=== PATIENT | male | born 1985 | race Hispanic/Latino ===

== ENCOUNTER 2024-09-05 13:10 | Inpatient (IN) | payer OTHER, SELFPAY ==
[2024-09-05] VITALS (9 sets, daily range): BP systolic 137–163; BP diastolic 77–105; PULSE 91–103; RESP 13–20; TEMP 36.5–37; O2SAT 97–99; BMI 21.8
--- NOTE | ~2024-09-05 | CT_ITS ---
CT scan of the Neck Technique: 2.5 mm axial scans were obtained through the neck after intravenous administration of 75 c c Omnipaque 350. Coronal and sagittal reconstructions of the neck were obtained. Dose reduction techn ique was used on this scan by utilizing automated exposure control and iterative reconstruction techn ique. The dose-length product (DLP) was 555.54 mGy-cm. Clinical History: Dysphagia Findings: There are mildly enlarged lymph nodes at the right neck at level 2 and in the submental region/subman dibular region, nonspecific, most likely reactive/inflammatory. Parapharyngeal spaces appear normal b ilaterally. No abscess evident. The parotid and submandibular glands appear normal. The pharyngeal mucosal spaces appear normal. No soft tissue masses are seen in the neck. The thyroid gland appears normal. Images of the lung apices reveal no abnormalities. Impression: Mild probable reactive/inflammatory lymphadenopathy in the right neck, as above. Reviewed, dictated and finalized at [facility]. ENGINEER Impression: Mild probable reactive/inflammatory lymphadenopathy in the right neck, as above .
--- NOTE | ~2024-09-05 | CT_ITS ---
EXAMINATION: CT facial bones w con DATE: 09/05/2024 14:54 INDICATION: Right facial abscess. TECHNIQUE: Computed tomography (CT) of the facial bones and maxillofacial region was performed with 7 5 mL Omnipaque 350 intravenous contrast. Automated exposure control and iterative reconstruction tech Needleque were employed. The dose-length product was 355.74 mGy-cm. COMPARISON: None. FINDINGS: There are likely changes of left ocular lens replacement surgery. There is right lower face soft tissue swelling. There is a 3 mm subcutaneous radiopaque foreign body in the right lower face. There is mild mucosal thickening in the paranasal sinuses. The mastoid air cells are normal. There ar e carious lesions involving teeth 3, 4, 5, 6, 12, and 13. 14 and 15 are broken and demonstrates peria pical lucencies. There is a carious lesion of 17. 18 is broken with periapical lucencies. There are c arious lesions of 28 and 29. There is a carious lesion of 30 with periapical lucencies. There is a ca rious lesion of 32. IMPRESSION: 1. Extensive dental disease. 2. Right lower face soft tissue swelling. 3. 3 mm subcutaneous radiopaque foreign body in right lower face. Reviewed, dictated and finalized at location A. 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
[2024-09-05 13:20] LABS: Glucose Point of Care > 500 mg/dl (65-105)
--- NOTE | 2024-09-05 13:23 | ECG_ITS ---
Test Date: 2024-09-05 13:24:58 Measurements Intervals [place] Rate: 103 P: 42 NC: 142 QRS: 50 QRSD: 80 T: 18 QT: 319 QTc: 419 Interpretive Statements SINUS TACHYCARDIA NONSPECIFIC ST AND T-WAVE ABNORMALITY ABNORMA ECG No previous ECG available for comparison Electronically Signed On 09-05-2024 15:04:47 TRANSIT COACH OPERATOR by Terry Valenzuela M.D.
--- NOTE | 2024-09-05 13:33 | ED.GENADULT ---
HPI - General Adult General Chief complaint: Recheck/Abnormal Lab/Rx Stated complaint: dental abscess, vomiting, dizzy, leg numbness Time Seen by Provider: 09/05/24 13:22 History of Present Illness HPI narrative: 39-year-old male history of type 1 diabetes that reports he has been out of his diabetes medications for the last month present to the emergency department for evaluation for facial swelling and concern for facial abscess. Related Data Home Medications ?Medication ?Instructions ?Recorded ?Confirmed ?Last Taken ?Type pantoprazole 40 mg tablet,delayed 40 mg PO QAM 08/04/21 09/05/24 Unknown History release Allergies Allergy/AdvReac Type Severity Reaction Status Date / Time No Known Allergies Allergy Verified 11/12/21 13:27 Review of Systems Review of Systems: All systems reviewed & are unremarkable except as noted in HPI and below PMFSH Past Medical History Medical History Anxiety Diabetes type 1 GERD (gastroesophageal reflux disease) Hyperlipidemia Neuropathy Surgical History Surgical History History of tonsillectomy Family History Family History Grandparent Diabetes mellitus Sibling Cerebral palsy Father Renal disease Social History Social History Smoking packs per day: 0.5 Smoking cigarettes per day: 10.0 Years smoked: 15 Smoking pack-years: 7.50 Smoking status: Former smoker Tobacco type: cigarettes Alcohol intake: former Alcohol use details: Social Substance use: current Substance use type: marijuana Other substance usage details: 2x a month Do You Feel Safe in your Home?: Yes Lack of Transportation: No Lack of Food: Never True Current Housing: I Have Housing Concerned About Future Housing: No Difficulty Paying Gas/Electric Bills: No Difficulty Paying for Meds: No Currently Unemployed: No Education: Grade School Difficulty w/ Childcare or Family Care: No Living arrangements: with family Spiritual care concerns: No Exam Narrative: APPEARANCE: Ill-appearing HEAD: normocephalic, atraumatic. EYES: PERRLA/EOMI, conjunctivae clear. NOSE: Normal no drainage EARS:TMS clear with good light reflex. THROAT: Pharynx clear, no exudate. NECK: Supple. No adenopathy, no masses. RESPIRATORY: Airway patent, respirations nonlabored. Clear to auscultation bilaterally, no rales, rhonchi, wheezing. CARDIOVASCULAR: Regular rate and rhythm without murmurs rubs or gallops. ABDOMINAL: Soft, nontender, nondistended, normal bowel sounds MUSCULOSKELETAL: Moves all extremities. Strength/ROM intact, No edema, No calf tenderness. NEURO: Alert. Cranial nerves II through XII intact. Good gait. Good coordination SKIN: Right-sided facial swelling. Course Vital Signs Vital signs: Vital Signs Temperature 97.7 F 09/05/24 13:13 Pulse Rate 103 H 09/05/24 13:13 Respiratory Rate 16 09/05/24 13:13 Blood Pressure 140/77 09/05/24 13:13 Pulse Oximetry 98 09/05/24 13:13 Oxygen Delivery Room Air 09/05/24 13:13 Temperature 96.8 F L 09/09/24 08:35 Pulse Rate 92 09/09/24 08:35 Respiratory Rate 16 09/09/24 08:35 Blood Pressure 153/87 H 09/09/24 08:35 Pulse Oximetry 98 09/09/24 08:37 Oxygen Delivery Room Air 09/09/24 08:37 Medical Decision Making MDM Narrative Medical decision making narrative: 39-year-old male presents emergency department for evaluation for facial swelling and concern for DKA. Patient is in DKA and was started on IV fluids insulin bolus and insulin infusion. Patient's CT was also ordered and showed no evidence abscess amenable to drainage. Patient was started on antibiotics, admitted to the ICU for DKA, case was also discussed with the hospitalist. Patient was updated on the results of the workup and plan for admission. Differential Diagnosis Differential Diagnosis: Facial abscess, DKA, COVID, influenz Vital Signs Vital Signs: Vital Signs Temperature 97.7 F 09/05/24 13:13 Pulse Rate 103 H 09/05/24 13:13 Respiratory Rate 16 09/05/24 13:13 Blood Pressure 140/77 09/05/24 13:13 Pulse Oximetry 98 09/05/24 13:13 Oxygen Delivery Room Air 09/05/24 13:13 Temperature 96.8 F L 09/09/24 08:35 Pulse Rate 92 09/09/24 08:35 Respiratory Rate 16 09/09/24 08:35 Blood Pressure 153/87 H 09/09/24 08:35 Pulse Oximetry 98 09/09/24 08:37 Oxygen Delivery Room Air 09/09/24 08:37 Lab Data Lab results reviewed: Yes I reviewed the patient's lab results. 09/09/24 05:32 09/09/24 05:32 Labs: Lab Results 09/05/24 09/05/24 09/05/24 Range/Units 13:17 13:45 13:46 WBC 7.4 (4.5-10.0) K/mm3 RBC 4.42 L (4.6-6.20) M/mm3 Hgb 12.9 L (14.0-18.0) g/dL Hct 35.5 L (42.0-52.0) % MCV 80.3 (80-100) fl MCH 29.2 (26-34) pg MCHC 36.3 H (32-36) g/dl RDW 12.0 (11.5-14.5) % Plt Count 207 (150-375) k/mm3 MPV 10.6 H (7.4-10.4) fl Immature Gran % (Auto) 0.4 (0-0.5) % Neut % (Auto) 77.9 H (45.5-73.1) % Lymph % (Auto) 13.1 L (18.3-44.2) % [place] % (Auto) 8.3 (2.6-8.5) % Eos % (Auto) 0.0 (0-4.4) % Baso % (Auto) 0.3 (0.2-1.2) % Lymph # (Auto) 0.97 (0.9-3.2) K/mm3 [place] # (Auto) 0.6 (0.1-0.6) K/mm3 Eos # (Auto) 0.0 (0-0.3) K/mm3 Baso # (Auto) 0.0 (0.0-0.1) K/mm3 Abs Immat Gran (auto) 0.03 (0.00-0.031) K/mm3 Absolute Neuts (auto) 5.8 (1.3-6.7) K/mm3 Absolute Nucleated RBC 0.000 (0.0-0.012) K/mm3 Nucleated RBC % 0.0 (0.0-0.2) % PT 13.7 (11.1-14.7) Seconds INR 1.0 APTT 30.2 (22.3-36.8) Seconds Sodium 126 L (137-145) mmol/L Potassium 5.3 H (3.4-5.0) mmol/L Chloride 89 L (98-107) mmol/L Carbon Dioxide 20 L (22-30) mmol/L Anion Gap 17 H (4-12) mmol/L BUN 36 H (9-20) mg/dL Creatinine 1.80 H (0.7-1.3) mg/dL Estim Creat Clear Calc 46 ml/min Estimated GFR 42 L (59 - ) Glucose 694 H* (65-110) mg/dL POC Capillary Glucose > 500 H* (65-105) mg/dl Hemoglobin A1c 13.4 H (<5.7) % Serum Osmolality 333 H (278-305) mOsm/kg Lactic Acid 1.0 (0.7-2.0) mmol/L Calcium 9.1 (8.4-10.2) mg/dL Phosphorus 4.8 H (2.5-4.5) mg/dL Magnesium 2.9 H (1.6-2.3) mg/dL Total Bilirubin 0.7 (0.2-1.3) mg/dL AST 14 L (17-59) U/L ALT 12 (6-50) U/L Alkaline Phosphatase 128 H (38-126) U/L Total Protein 7.0 (6.3-8.2) g/dL Albumin 4.1 (3.5-5.1) g/dL Urine Color (Yellow) Urine Appearance (Clear) Urine pH (5.0-9.0) Ur Specific [place] (1.001-1.035) Urine Protein (Negative) mg/dL Urine Glucose (UA) (Negative) mg/dL Urine Ketones (Negative) mg/dL Ur Blood (Man) (Negative) Urine Nitrate (Negative) Urine Bilirubin (Negative) Urine Urobilinogen (<2.0) mg/dL Add Ur Microanalysis Leukocyte Esterase Rfl (Negative) CIRO/UL Urine RBC (0-2) /hpf Urine WBC (0-3) /hpf Ur Squamous Epith Cells (Few) /hpf Urine Bacteria /hpf Urine Casts 09/05/24 09/05/2409/05/24 Range/Units 14:15 14:58 15:01 WBC (4.5-10.0) K/mm3 RBC (4.6-6.20) M/mm3 Hgb (14.0-18.0) g/dL Hct (42.0-52.0) % MCV (80-100) fl MCH (26-34) pg MCHC (32-36) g/dl RDW (11.5-14.5) % Plt Count (150-375) k/mm3 MPV (7.4-10.4) fl Immature Gran % (Auto) (0-0.5) % Neut % (Auto) (45.5-73.1) % Lymph % (Auto) (18.3-44.2) % [place] % (Auto) (2.6-8.5) % Eos % (Auto) (0-4.4) % Baso % (Auto) (0.2-1.2) % Lymph # (Auto) (0.9-3.2) K/mm3 [place] # (Auto) (0.1-0.6) K/mm3 Eos # (Auto) (0-0.3) K/mm3 Baso # (Auto) (0.0-0.1) K/mm3 Abs Immat Gran (auto) (0.00-0.031) K/mm3 Absolute Neuts (auto) (1.3-6.7) K/mm3 Absolute Nucleated RBC (0.0-0.012) K/mm3 Nucleated RBC % (0.0-0.2) % PT (11.1-14.7) Seconds INR APTT (22.3-36.8) Seconds Sodium 129 L (137-145) mmol/L Potassium 4.4 (3.4-5.0) mmol/L Chloride 94 L (98-107) mmol/L Carbon Dioxide 24 (22-30) mmol/L Anion Gap 11 (4-12) mmol/L BUN 34 H (9-20) mg/dL Creatinine 1.50 H (0.7-1.3) mg/dL Estim Creat Clear Calc 55 ml/min Estimated GFR 52 L (59 - ) Glucose 519 H* (65-110) mg/dL POC Capillary Glucose > 500 H* (65-105) mg/dl Hemoglobin A1c (<5.7) % Serum Osmolality (278-305) mOsm/kg Lactic Acid (0.7-2.0) mmol/L Calcium 8.4 (8.4-10.2) mg/dL Phosphorus (2.5-4.5) mg/dL Magnesium (1.6-2.3) mg/dL Total Bilirubin (0.2-1.3) mg/dL AST (17-59) U/L ALT (6-50) U/L Alkaline Phosphatase (38-126) U/L Total Protein (6.3-8.2) g/dL Albumin (3.5-5.1) g/dL Urine Color Yellow (Yellow) Urine Appearance Clear (Clear) Urine pH 5.0 (5.0-9.0) Ur Specific [place] 1.030 (1.001-1.035) Urine Protein 2+ H (Negative) mg/dL Urine Glucose (UA) 3+ H (Negative) mg/dL Urine Ketones 3+ H (Negative) mg/dL Ur Blood (Man) 1+ H (Negative) Urine Nitrate Negative (Negative) Urine Bilirubin Negative (Negative) Urine Urobilinogen 0.2 (<2.0) mg/dL Add Ur Microanalysis Reviewed Leukocyte Esterase Rfl Negative (Negative) CIRO/UL Urine RBC 3-5 H (0-2) /hpf Urine WBC 0-5 (0-3) /hpf Ur Squamous Epith Cells None seen (Few) /hpf Urine Bacteria None seen /hpf Urine Casts 0-2 09/05/24 Range/Units 16:06 WBC (4.5-10.0) K/mm3 RBC (4.6-6.20) M/mm3 Hgb (14.0-18.0) g/dL Hct (42.0-52.0) % MCV (80-100) fl MCH (26-34) pg MCHC (32-36) g/dl RDW (11.5-14.5) % Plt Count (150-375) k/mm3 MPV (7.4-10.4) fl Immature Gran % (Auto) (0-0.5) % Neut % (Auto) (45.5-73.1) % Lymph % (Auto) (18.3-44.2) % [place] % (Auto) (2.6-8.5) % Eos % (Auto) (0-4.4) % Baso % (Auto) (0.2-1.2) % Lymph # (Auto) (0.9-3.2) K/mm3 [place] # (Auto) (0.1-0.6) K/mm3 Eos # (Auto) (0-0.3) K/mm3 Baso # (Auto) (0.0-0.1) K/mm3 Abs Immat Gran (auto) (0.00-0.031) K/mm3 Absolute Neuts (auto) (1.3-6.7) K/mm3 Absolute Nucleated RBC (0.0-0.012) K/mm3 Nucleated RBC % (0.0-0.2) % PT (11.1-14.7) Seconds INR APTT (22.3-36.8) Seconds Sodium (137-145) mmol/L Potassium (3.4-5.0) mmol/L Chloride (98-107) mmol/L Carbon Dioxide (22-30) mmol/L Anion Gap (4-12) mmol/L BUN (9-20) mg/dL Creatinine (0.7-1.3) mg/dL Estim Creat Clear Calc ml/min Estimated GFR (59 - ) Glucose (65-110) mg/dL POC Capillary Glucose 437 H (65-105) mg/dl Hemoglobin A1c (<5.7) % Serum Osmolality (278-305) mOsm/kg Lactic Acid (0.7-2.0) mmol/L Calcium (8.4-10.2) mg/dL Phosphorus (2.5-4.5) mg/dL Magnesium (1.6-2.3) mg/dL Total Bilirubin (0.2-1.3) mg/dL AST (17-59) U/L ALT (6-50) U/L Alkaline Phosphatase (38-126) U/L Total Protein (6.3-8.2) g/dL Albumin (3.5-5.1) g/dL Urine Color (Yellow) Urine Appearance (Clear) Urine pH (5.0-9.0) Ur Specific [place] (1.001-1.035) Urine Protein (Negative) mg/dL Urine Glucose (UA) (Negative) mg/dL Urine Ketones (Negative) mg/dL Ur Blood (Man) (Negative) Urine Nitrate (Negative) Urine Bilirubin (Negative) Urine Urobilinogen (<2.0) mg/dL Add Ur Microanalysis Leukocyte Esterase Rfl (Negative) CIRO/UL Urine RBC (0-2) /hpf Urine WBC (0-3) /hpf Ur Squamous Epith Cells (Few) /hpf Urine Bacteria /hpf Urine Casts Critical Care Time Critical Care Time Critical Care Time: Yes Total Critical Care Time: 35 Discharge Plan Discharge Clinical Impression: Dental infection DKA (diabetic ketoacidosis) Qualifiers: Diabetes mellitus type: type 1 Diabetes mellitus complication detail: without coma Qualified Code(s): E10.10 - Type 1 diabetes mellitus with ketoacidosis without coma Patient Disposition: Still a Patient Condition: Stable
[2024-09-05] MEDS: SODIUM CHLORIDE 0.9% IV 1,000 ML 999 ML IV CONT (13:48)
[2024-09-05] MEDS: INSULIN HUMAN REGULAR (*BKC) 100 UNITS/ML 7 UNITS IV PUSH (13:55)
[2024-09-05 13:59] LABS: Basophils Percent Auto 0.3 % (0.2-1.2); Hematocrit 35.5 % (42.0-52.0); Hemoglobin 12.9 g/dL (14.0-18.0); Immature Granulocyte Absolute 0.03 K/mm3 (0.00-0.031); Immature Granulocyte Percent A 0.4 % (0-0.5); Lymphocytes Absolute Auto 0.97 K/mm3 (0.9-3.2); Lymphocytes Percent Auto 13.1 % (18.3-44.2); Mean Corpuscular HGB Conc 36.3 g/dl (32-36); Mean Corpuscular Hemoglobin 29.2 pg (26-34); Mean Corpuscular Volume 80.3 fl (80-100); Mean Platelet Volume 10.6 fl (7.4-10.4); Monocytes Absolute Auto 0.6 K/mm3 (0.1-0.6); Monocytes Percent Auto 8.3 % (2.6-8.5); Neutrophils Absolute Auto 5.8 K/mm3 (1.3-6.7); Neutrophils Percent Auto 77.9 % (45.5-73.1); Platelet Count Result 207 k/mm3 (150-375); Red Blood Count 4.42 M/mm3 (4.6-6.20); White Blood Count 7.4 K/mm3 (4.5-10.0)
[2024-09-05 14:10] LABS: Partial Thromboplastin Time 30.2 Seconds (22.3-36.8); Prothrombin Time 13.7 Seconds (11.1-14.7)
[2024-09-05 14:35] LABS: Alanine Aminotransferase 12 U/L (6-50); Albumin Level 4.1 g/dL (3.5-5.1); Alkaline Phosphatase 128 U/L (38-126); Anion Gap 17 mmol/L (4-12); Aspartate Amino Transferase 14 U/L (17-59); Bilirubin,Total 0.7 mg/dL (0.2-1.3); Blood Urea Nitrogen 36 mg/dL (9-20); Calcium 9.1 mg/dL (8.4-10.2); Carbon Dioxide 20 mmol/L (22-30); Chloride 89 mmol/L (98-107); Estimated CRCL calculation 46 ml/min; Estimated Glomerular Filt Rate 42; Glucose 694 mg/dL (65-110); Potassium 5.3 mmol/L (3.4-5.0); Sodium 126 mmol/L (137-145)
[2024-09-05 14:37] LABS: Add Urine Microscopic? YES; Appearance Urine Clear (Clear); Bacteria Urine None Seen /hpf; Bilirubin Urine Negative (Negative); Blood Urine 1+ (Negative); Color Urine Yellow (Yellow); Glucose Urine UA 3+ mg/dL (Negative); Ketones Urine 3+ mg/dL (Negative); Leukocyte Esterase Ur Negative LEU/UL (Negative); Need Manual Microscopic Reviewed; Nitrate Urine Negative (Negative); Non Pathogenic Casts 0-2; Protein Urine 2+ mg/dL (Negative); Squamous Epithelial Cell Urine None Seen /hpf (Few); Urobilinogen Urine 0.2 mg/dL (<2.0); WBC Urine 0-5 /hpf (0-3)
[2024-09-05 14:55] LABS: Magnesium 2.9 mg/dL (1.6-2.3); Phosphorus 4.8 mg/dL (2.5-4.5)
[2024-09-05 15:00] LABS: Glucose Point of Care > 500 mg/dl (65-105)
[2024-09-05] MEDS: SODIUM CHLORIDE 0.9% IV 1,000 ML 150 ML IV CONT (15:01)
[2024-09-05] MEDS: INSULIN HUMAN REGULAR (*BKC) 100 UNITS in SODIUM CHLORIDE 0.9% IV 99 ML 7 UNITS IV CONT (15:01)
[2024-09-05 15:41] LABS: Anion Gap 11 mmol/L (4-12); Blood Urea Nitrogen 34 mg/dL (9-20); Calcium 8.4 mg/dL (8.4-10.2); Carbon Dioxide 24 mmol/L (22-30); Chloride 94 mmol/L (98-107); Estimated CRCL calculation 55 ml/min; Estimated Glomerular Filt Rate 52; Glucose 519 mg/dL (65-110); Potassium 4.4 mmol/L (3.4-5.0); Sodium 129 mmol/L (137-145)
[2024-09-05] MEDS: CLINDAMYCIN 600 MG/D5W 50 ML 600 MG/50 ML PIGGYBACK 100 MG IVPB (16:21)
[2024-09-05 16:24] LABS: Glucose Point of Care 437 mg/dl (65-105)
[2024-09-05] MEDS: LACTATED RINGERS 1,000 ML 999 ML IV CONT (17:04)
[2024-09-05 17:13] LABS: Glucose Point of Care 305 mg/dl (65-105)
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
[2024-09-05 18:32] LABS: Glucose Point of Care 146 mg/dl (65-105)
[2024-09-05] MEDS: KCL 20 MEQ/D5/0.45% SOD CHL 1,000 ML 150 ML IV CONT (18:35)
[2024-09-05 19:03] LABS: Add Urine Microscopic? YES; Appearance Urine Clear (Clear); Bacteria Urine None Seen /hpf; Bilirubin Urine Negative (Negative); Blood Urine Non-Hemolyzed Trace (Negative); Color Urine Yellow (Yellow); Glucose Urine UA 3+ mg/dL (Negative); Ketones Urine 2+ mg/dL (Negative); Leukocyte Esterase Ur Negative LEU/UL (Negative); Nitrate Urine Negative (Negative); Non Pathogenic Casts 0-2; Protein Urine 2+ mg/dL (Negative); Specific Grav Ur > 1.045 (1.001-1.035); Squamous Epithelial Cell Urine None Seen /hpf (Few); Urobilinogen Urine 0.2 mg/dL (<2.0); WBC Urine 0-5 /hpf (0-3); pH Urine 5.5 (5.0-9.0)
[2024-09-05 19:04] LABS: Need Manual Microscopic Reviewed
[2024-09-05 19:13] LABS: Glucose Point of Care 101 mg/dl (65-105)
--- NOTE | 2024-09-05 19:15 | ADMGEN ---
This patient, Aldair Mckeon Jr., was admitted to Intensive Care Unit-8 at 1800. Patient/family oriented to hospital policies and general routines including ID bracelet, bed and alarms, visiting hours, pain management, procedures, bathroom and other care routines, personal items, smoking policy, room service/diet, and visiting hours. Information on how to activate the Rapid Response Team has been discussed. Patient/Family are encouraged to report perceived risks to care and to ask questions if they do not understand what they are told or what they should do.
[2024-09-05 19:34] LABS: Anion Gap 4 mmol/L (4-12); Blood Urea Nitrogen 29 mg/dL (9-20); Calcium 8.5 mg/dL (8.4-10.2); Carbon Dioxide 27 mmol/L (22-30); Chloride 104 mmol/L (98-107); Estimated CRCL calculation 67 ml/min; Estimated Glomerular Filt Rate > 60; Glucose 110 mg/dL (65-110); Magnesium 2.8 mg/dL (1.6-2.3); Phosphorus 3.5 mg/dL (2.5-4.5); Sodium 135 mmol/L (137-145)
[2024-09-05] MEDS: methylPREDNISolone SOD SUCC 125 MG VIAL IV PUSH (19:59)
[2024-09-05] MEDS: MORPHINE SULFATE (*CRX) 2 MG/ML INJ IV PUSH (20:00)
[2024-09-05 20:08] LABS: MRSA (PCR) NOT DETECTED (NOT DETECTE)
[2024-09-05] MEDS: HYDROcodone/acetaminophen (*CRX) 5-325 MG TABLET 1 TAB PO (20:59)
[2024-09-05 21:03] LABS: Glucose Point of Care 137 mg/dl (65-105)
[2024-09-05 22:33] LABS: Glucose Point of Care 192 mg/dl (65-105)
[2024-09-06] VITALS (13 sets, daily range): BP systolic 133–171; BP diastolic 84–97; PULSE 86–99; RESP 11–20; TEMP 36.4–36.6; O2SAT 97–100
[2024-09-06] MEDS: MORPHINE SULFATE (*CRX) 2 MG/ML INJ IV PUSH ×2 (00:09→20:49)
[2024-09-06 00:10] LABS: Hemoglobin A1C 13.4 % (<5.7)
[2024-09-06] MEDS: SODIUM CHLORIDE 0.9% IV 1,000 ML 150 ML IV CONT (00:10)
[2024-09-06 00:15] LABS: Glucose Point of Care 262 mg/dl (65-105)
[2024-09-06 00:34] LABS: Anion Gap 6 mmol/L (4-12); Blood Urea Nitrogen 27 mg/dL (9-20); Calcium 8.4 mg/dL (8.4-10.2); Carbon Dioxide 27 mmol/L (22-30); Chloride 102 mmol/L (98-107); Estimated CRCL calculation 67 ml/min; Estimated Glomerular Filt Rate > 60; Glucose 260 mg/dL (65-110); Potassium 4.9 mmol/L (3.4-5.0); Sodium 135 mmol/L (137-145)
[2024-09-06] MEDS: CLINDAMYCIN 600 MG/D5W 50 ML 600 MG/50 ML PIGGYBACK 100 MG IVPB ×2 (01:02→09:01)
[2024-09-06 01:41] LABS: Glucose Point of Care 294 mg/dl (65-105)
[2024-09-06 03:10] LABS: Glucose Point of Care 237 mg/dl (65-105)
[2024-09-06 04:20] LABS: Basophils Percent Auto 0.1 % (0.2-1.2); Hematocrit 30.6 % (42.0-52.0); Hemoglobin 11.2 g/dL (14.0-18.0); Immature Granulocyte Absolute 0.04 K/mm3 (0.00-0.031); Immature Granulocyte Percent A 0.6 % (0-0.5); Lymphocytes Absolute Auto 0.54 K/mm3 (0.9-3.2); Lymphocytes Percent Auto 7.8 % (18.3-44.2); Mean Corpuscular HGB Conc 36.6 g/dl (32-36); Mean Corpuscular Hemoglobin 29.6 pg (26-34); Mean Platelet Volume 9.7 fl (7.4-10.4); Monocytes Absolute Auto 0.1 K/mm3 (0.1-0.6); Monocytes Percent Auto 1.3 % (2.6-8.5); Neutrophils Absolute Auto 6.3 K/mm3 (1.3-6.7); Neutrophils Percent Auto 90.2 % (45.5-73.1); Platelet Count Result 194 k/mm3 (150-375); Red Blood Count 3.78 M/mm3 (4.6-6.20); Red Cell Distribution Width 12.1 % (11.5-14.5); White Blood Count 6.9 K/mm3 (4.5-10.0)
[2024-09-06 04:36] LABS: Anion Gap 5 mmol/L (4-12); Blood Urea Nitrogen 28 mg/dL (9-20); Calcium 8.3 mg/dL (8.4-10.2); Carbon Dioxide 26 mmol/L (22-30); Chloride 104 mmol/L (98-107); Estimated CRCL calculation 73 ml/min; Estimated Glomerular Filt Rate > 60; Glucose 247 mg/dL (65-110); Magnesium 2.7 mg/dL (1.6-2.3); Phosphorus 3.4 mg/dL (2.5-4.5); Potassium 4.8 mmol/L (3.4-5.0); Sodium 135 mmol/L (137-145)
[2024-09-06 05:26] LABS: Glucose Point of Care 247 mg/dl (65-105)
[2024-09-06] MEDS: HYDROcodone/acetaminophen (*CRX) 5-325 MG TABLET 1 TAB PO ×3 (05:26→17:14)
[2024-09-06] MEDS: KCL 20 MEQ/D5/0.45% SOD CHL 1,000 ML 150 ML IV CONT (06:39)
[2024-09-06 06:44] LABS: Glucose Point of Care 213 mg/dl (65-105)
[2024-09-06] MEDS: PANTOPRAZOLE 40 MG TABLET PO (08:00)
[2024-09-06 08:04] LABS: Glucose Point of Care 233 mg/dl (65-105)
[2024-09-06] MEDS: INSULIN GLARGINE (*BKC) 100 UNITS/ML 15 UNITS SUB-Q (09:02)
--- NOTE | 2024-09-06 09:06 | P.CONIN_ITS ---
Assessment and Plan Assessment and plan (1) DKA (diabetic ketoacidosis): Qualifiers: Diabetes mellitus type: type 1 Diabetes mellitus complication detail: without coma Qualified Code(s): E10.10 - Type 1 diabetes mellitus with ketoacidosis without coma Code(s): E11.10 - Type 2 diabetes mellitus with ketoacidosis without coma Status: Acute Assessment and Plan: Presented with DKA secondary to noncompliance. Pt was given IVF bolus and started on infusion Insulin infusion started and Q1H glucose monitoring is being done Serial labs were done Plan gap has now closed and patient is clinically improved with no symptoms related to DKA I Will transition to SC insulin and start patient on diet Dietitian and senior health educator has been consulted Will start Lantus, with meal insulin and sliding scale insulin (2) Diabetes type 1: Qualifiers: Diabetes mellitus complication status: with ketoacidosis Diabetes mellitus complication detail: without coma Qualified Code(s): E10.10 - Type 1 diabetes mellitus with ketoacidosis without coma Code(s): E10.9 - Type 1 diabetes mellitus without complications Status: Acute Assessment and Plan: See above (3) Dental infection: Code(s): K04.7 - Periapical abscess without sinus Status: Acute Assessment and Plan: Patient had CT face done in the ED which showed 1. Extensive dental disease. 2. Right lower face soft tissue swelling. 3. 3 mm subcutaneous radiopaque foreign body in right lower face He is able to speak and eat without any difficulty. He has normal WBC count Continue clindamycin. Plan DVT prophylaxis -patient ambulating Nutrition -diet ordered Code Status - Full Code Transfer out ICU today Linen Sorter Consult Note Consult date: 09/06/24 Reason for consult: DKA HPI: Aldair Mckeon is a 39 year old male with past medical history of type 1 diabetes diagnosed at age of 15 presented with hyperglycemia, dental abscess, dizziness, fall, facial swelling to ER yesterday. Patient has not had access to insulin since June. Patient states that he was doing okay until Tuesday he started having pain in this right side of the jaw. He also had sweating and chills but no fever that he noticed. He was unable to get an appointment with dentist. He states that his physician left the practice in June and he has been unable to find another doctor to write his prescription of his insulin. Prior to that he was taking 10 units of insulin 3 times a day. He states that he is appetite has been adequate he lost some weight and he has had excessive thirst and polyuria. He has some swelling on the right side of his cheek. He has had difficulty eating with solid foods to pain but no trouble swallowing per se. He also denies any difficulty breathing or change in speech. All other systems were reviewed and were negative Initial VS at presentation: 97.7? F, HR 103, RR 16, 140/77, and 98% on RA. ED workup showed: No leukocytosis, hemoglobin 12.9 (previously 15.8 in 2019), sodium 126 (when corrected for hyperglycemia, 140), creatinine 1.8 and GFR 42 (previously 0.9 and GFR >60 in 2019), magnesium 2.9, phosphorus 4.8, gap 17. UA showed 2+ protein, 3+ glucose, 3+ ketones, 1+ blood, 3-[address] face showed extents of dental disease, right lower face soft tissue swelling, and a 3 mm subcutaneous radiopaque foreign body in the right lower face. He was admitted to ICU and started on IV insulin infusion along with IV fluids and clindamycin. This morning he states he feels much better and denies any complaints. He states he is ready to eat food. Review of Systems Review of Systems: All systems reviewed & are unremarkable except as noted in HPI and below (HPI) PMFSH Past Medical History Medical History Anxiety Diabetes type 1 GERD (gastroesophageal reflux disease) Hyperlipidemia Neuropathy Surgical History Surgical History History of tonsillectomy Family History Family History Grandparent Diabetes mellitus Sibling Cerebral palsy Father Renal disease Social History Social History Smoking packs per day: 0.5 Smoking cigarettes per day: 10.0 Years smoked: 15 Smoking pack-years: 7.50 Smoking status: Former smoker Tobacco type: cigarettes Alcohol intake: former Alcohol use details: Social Substance use: current Substance use type: marijuana Other substance usage details: 2x a month Do You Feel Safe in your Home?: Yes Lack of Transportation: No Lack of Food: Never True Current Housing: I Have Housing Concerned About Future Housing: No Difficulty Paying Gas/Electric Bills: No Difficulty Paying for Meds: No Currently Unemployed: No Education: Grade School Difficulty w/ Childcare or Family Care: No Living arrangements: with family Spiritual care concerns: No Meds Home Medications and Allergies Home Medications Medication Instructions Recorded Confirmed Type pantoprazole 40 mg tablet,delayed 40 mg PO QAM 08/04/21 09/05/24 History release insulin lispro 100 unit/mL 10 unit subcut TIDWM 11/12/21 09/05/24 History subcutaneous solution (Humalog U-100 Insulin) Allergies Allergy/AdvReac Type Severity Reaction Status Date / Time No Known Allergies Allergy Verified 11/12/21 13:27 Vital Signs Vital Signs - 24 hr 09/05/24 13:13 09/05/24 14:09 09/05/24 15:04 Temperature 36.5 C Pulse Rate 103 H 102 H 103 H Respiratory Rate 16 17 20 Blood Pressure 140/77 155/92 H Pulse Oximetry 98 99 99 Oxygen Delivery Room Air 09/05/24 16:14 09/05/24 17:04 09/05/24 17:35 Temperature 36.6 C 37.0 C Pulse Rate 99 95 97 Respiratory Rate 17 15 16 Blood Pressure 137/105 H 143/87 H 154/92 H Pulse Oximetry 98 97 99 Oxygen Delivery 09/05/24 18:00 09/05/24 18:00 09/05/24 20:00 Temperature 36.8 C Pulse Rate 95 96 95 Respiratory Rate 15 15 Blood Pressure 157/85 H 163/96 H Pulse Oximetry 98 98 Oxygen Delivery 09/05/24 20:00 09/05/24 22:00 09/05/24 20:00 Temperature Pulse Rate 95 95 99 Respiratory Rate 15 13 Blood Pressure 150/85 H Pulse Oximetry 98 98 Oxygen Delivery Room Air 09/05/24 22:00 09/06/24 00:00 09/06/24 00:00 Temperature Pulse Rate 91 97 97 Respiratory Rate 20 Blood Pressure 148/94 H Pulse Oximetry 98 Oxygen Delivery 09/06/24 00:00 09/06/24 02:00 09/06/24 02:00 Temperature Pulse Rate 90 94 94 Respiratory Rate 20 12 Blood Pressure 155/97 H Pulse Oximetry 98 98 Oxygen Delivery Room Air 09/06/24 04:00 09/06/24 04:00 09/06/24 04:00 Temperature Pulse Rate 91 90 86 Respiratory Rate 15 14 Blood Pressure 133/94 H Pulse Oximetry 99 98 Oxygen Delivery Room Air 09/06/24 06:00 09/06/24 06:00 09/06/24 08:32 Temperature Pulse Rate 96 99 Respiratory Rate 16 Blood Pressure 161/95 H Pulse Oximetry 100 99 Oxygen Delivery Room Air Exam Narrative: General: Pt is alert awake and in NAD Lungs/Chest: Trachea central Clear BS B/L, No crackles or wheezing. Cardiac: RRR. Normal S1 S2. No murmurs Circulation: Pedal pulses are intact and symmetrical. Abdomen: Normal bowel sounds.. Soft. NT. ND. Extremities: No clubbing, cyanosis or edema. Warm : Puga in place Neurologic: Follows commands. Moves all 4 extremities PERRL Skin: No Rash HEENT: Swelling and mild tenderness on the on base of the jaw on the right side, tongue does not appear swollen speech is normal Results Labs 09/06/24 04:15 09/06/24 04:15 Labs: Impressions Face CT 09/05/24 15:30 IMPRESSION: 1. Extensive dental disease. 2. Right lower face soft tissue swelling. 3. 3 mm subcutaneous radiopaque foreign body in right lower face. Short CBC 09/05/24 09/06/24 Range/Units 13:46 04:15 WBC 7.4 6.9 (4.5-10.0) K/mm3 Hgb 12.9 L 11.2 L (14.0-18.0) g/dL Hct 35.5 L 30.6 L (42.0-52.0) % Plt Count 207 194 (150-375) k/mm3 [facility] 09/05/24 09/05/24 09/05/24 13:46 15:01 19:01 Sodium 126 L 129 L 135 L Potassium 5.3 H 4.4 4.0 Chloride 89 L 94 L 104 Carbon Dioxide 20 L 24 27 BUN 36 H 34 H 29 H Creatinine 1.80 H 1.50 H 1.20 Glucose 694 H* 519 H* 110 Calcium 9.1 8.4 8.5 09/06/24 09/06/24 00:04 04:15 Sodium 135 L 135 L Potassium 4.9 4.8 Chloride 102 104 Carbon Dioxide 27 26 BUN 27 H 28 H Creatinine 1.20 1.10 Glucose 260 H 247 H Calcium 8.4 8.3 L Liver Function 09/05/24 Range/Units 13:46 Total Bilirubin 0.7 (0.2-1.3) mg/dL AST 14 L (17-59) U/L ALT 12 (6-50) U/L Alkaline Phosphatase 128 H (38-126) U/L Albumin 4.1 (3.5-5.1) g/dL Urine 09/05/24 09/05/24 Range/Units 14:15 18:42 Urine Color Yellow Yellow (Yellow) Urine Appearance Clear Clear (Clear) Urine pH 5.0 5.5 (5.0-9.0) Ur Specific [place] 1.030 > 1.045 H (1.001-1.035) Urine Protein 2+ H 2+ H (Negative) mg/dL Urine Glucose (UA) 3+ H 3+ H (Negative) mg/dL Hospitalist MIPS Advance Care Plan I have confirmed that the patient's Advanced Care Plan is present, code status is documented, or surrogate decision maker is listed in patient medical record.: Yes Medication Reconciliation I have utilized all available resources to obtain, update and review the patients current medications (includes all prescriptions, OTC, herbals, cannabis, and nutritional supplements).: Yes
[2024-09-06 11:49] LABS: Glucose Point of Care 244 mg/dl (65-105)
[2024-09-06] MEDS: INSULIN ASPART (*BKC) 100 UNITS/ML SUB-Q ×5 (11:50→21:01)
[2024-09-06] MEDS: CLINDAMYCIN HCL 150 MG CAP 450 MG PO ×2 (15:00→20:50)
[2024-09-06 16:42] LABS: Glucose Point of Care 201 mg/dl (65-105)
[2024-09-06 21:03] LABS: Glucose Point of Care 247 mg/dl (65-105)
[2024-09-07] VITALS (7 sets, daily range): BP systolic 150–169; BP diastolic 82–94; PULSE 92–97; RESP 13–18; TEMP 36.7–37.1; O2SAT 95–100; BMI 22.1
[2024-09-07] MEDS: HYDROmorphone HCL INJ (*CRX) 1 MG/ML SYR IV PUSH (03:22)
--- NOTE | 2024-09-07 03:31 | P.PNCROSS_ITS ---
Event Note Event Note Event Note: 09/07/2024 at 02:30 Nursing staff contacted me because the patient had acute worsening trismus, dysphagia and difficulty managing secretions. The patient reported he felt a pop near his right ear and since then has had markedly increased pain. He is unsure if he has had any increased swelling because he had not looked at himself in the mirror recently. On exam the patient's tongue was extremely high he had some slight erythema in the subglottic space head purulent-appearing material in the right posterior mandibular area, multiple dental caries with teeth broken off at the gumline, erythema and tenderness to the right pupil surface, significant submandibular anterior cervical lymphadenopathy right greater than left. The patient has been requiring pain medications both IV and oral around the clock. The patient reported improvement in his dysphagia when he received 1 dose of steroids in the operations supervisor chemical cleaning hours of the . I went and evaluated the patient is a risk some concern for Frank's angina given his reported symptoms. His physical exam was as discussed above. I ordered a stat CT with contrast of the soft tissues of the neck. At this time I have reviewed the imaging myself and do not see any obvious sublingual gas or abscess. Radiologic interpretation from stat read a is pending. Given the acute worsening in pain and swelling will change antibiotics from p.o. clindamycin to IV Unasyn. Will give the patient Solu-Medrol 80 mg q.8 hours. I have changed patient's pain medications from morphine to q.4 hours to Dilaudid 0.5 q.3 hours. 30 minute spent in critical care activities. Due to a high probability of clinically significant, life threatening deterioration, the patient required my highest level of preparedness to intervene emergently and I personally spent this critical care time directly and personally managing the patient. This critical care time included obtaining a history; examining the patient; pulse oximetry; ordering and review of studies; arranging urgent treatment with development of a management plan; evaluation of patient's response to treatment; frequent reassessment; and discussions with other providers. It was exclusive of separately billable procedures and treating other patients and teaching time. Please see Assessment and Plan section and the rest of the note for further information on patient assessment and treatment.
[2024-09-07] MEDS: methylPREDNISolone SOD SUCC 125 MG VIAL 80 MG IV PUSH (03:54)
[2024-09-07] MEDS: AMPICILLIN SULB 3 GM/NS 100 ML 3 GM/100 ML VIAL IVPB ×3 (04:36→17:19)
[2024-09-07] MEDS: INSULIN GLARGINE (*BKC) 100 UNITS/ML 15 UNITS SUB-Q (08:16)
[2024-09-07] MEDS: INSULIN ASPART (*BKC) 100 UNITS/ML SUB-Q ×7 (08:17→17:19)
[2024-09-07] MEDS: PANTOPRAZOLE 40 MG TABLET PO (08:18)
[2024-09-07 08:23] LABS: Glucose Point of Care 373 mg/dl (65-105)
--- NOTE | 2024-09-07 11:26 | PCFNICU ---
ICU Rounding Note: Pt current nutrition is DBCC. Last recorded weight is 66 kg stable Bowel Motility: No BM reported since admit. Labs Reviewed: no labs to report. Meds Noted:Lantus, NovoLog Skin: WNL Additional Notes: Patient remains on a DBCC diet. Oral Intake is > 75% of meals. Patient has been educated. Thank you for the consult. Following daily in ICU rounds.
[2024-09-07 11:31] LABS: Glucose Point of Care 408 mg/dl (65-105)
--- NOTE | 2024-09-07 14:42 | P.PNINT_ITS ---
Progress Note: A&P Assessment and Plan (1) Dental infection: Code(s): K04.7 - Periapical abscess without sinus Status: Acute Assessment and Plan: Patient had CT face done in the ED which showed 1. Extensive dental disease. 2. Right lower face soft tissue swelling. 3. 3 mm subcutaneous radiopaque foreign body in right lower face Overnight patient was switched to IV Unasyn and started on Solu-Medrol Repeat CT neck showed Mild probable reactive/inflammatory lymphadenopathy in the right neck, as above. Continue Unasyn I will discontinue Solu-Medrol as it is making his hyperglycemia uncontrolled and is not indicated He is able to speak and eat without any difficulty. No respiratory distress or stridor (2) DKA (diabetic ketoacidosis): Qualifiers: Diabetes mellitus complication detail: without coma Diabetes mellitus type: type 1 Qualified Code(s): E10.10 - Type 1 diabetes mellitus with ketoacidosis without coma Code(s): E11.10 - Type 2 diabetes mellitus with ketoacidosis without coma Status: Acute Assessment and Plan: Initially Presented with DKA secondary to noncompliance. Pt was given IVF and insulin infusion and was later transition to subcutaneous insulin once his anion gap closed Patient now is asymptomatic and eating regular diet and is on subcutaneous insulin Dietitian and clinical account executive has been consulted (3) Diabetes type 1: Qualifiers: Diabetes mellitus complication detail: without coma Diabetes mellitus complication status: with ketoacidosis Qualified Code(s): E10.10 - Type 1 diabetes mellitus with ketoacidosis without coma Code(s): E10.9 - Type 1 diabetes mellitus without complications Status: Acute Assessment and Plan: Currently on Lantus with meal insulin and sliding scale His sugars are now elevated secondary to steroids Solu-Medrol will be discontinued I will give him 1 additional dose of insulin and changes sliding scale to high Plan DVT prophylaxis -patient ambulating Nutrition -diet ordered Code Status - Full Code Transfer out ICU today Subjective Date/time seen: 09/07/24 Overnight events reviewed. Patient was afebrile. Overnight repeat CT scan of the neck was done with contrast to evaluate. Patient was also switched to IV Unasyn and was started on steroids. Patient tells me that last night he had acute throbbing pain on the right side of his face. He states that he received morphine and a repeat scan was done. After morphine he felt sleep when he woke up he felt there was liquid in his mouth and felt that may something may have 'popped'. At this time he is feeling better. He was eating his lunch and chips and drinking soda out any difficulty. He states the pain is intermittent and comes and goes and is partially resolved with pain medication. He denies any trouble with speech, difficulty breathing or trouble swallowing. All other systems were reviewed and were negative Review of Systems Review of Systems: All systems reviewed & are unremarkable except as noted in HPI and below (HPI) Exam Narrative: General: Pt is alert awake and in NAD Lungs/Chest: Trachea central Clear BS B/L, No crackles or wheezing. Cardiac: RRR. Normal S1 S2. No murmurs Circulation: Pedal pulses are intact and symmetrical. Abdomen: Normal bowel sounds.. Soft. NT. ND. Extremities: No clubbing, cyanosis or edema. Warm : Puga in place Neurologic: Follows commands. Moves all 4 extremities PERRL Skin: No Rash HEENT: Swelling and mild tenderness on the on base of the jaw on the right side, tongue is midline, I do not see any swelling at the base of the tongue or posterior pharyngeal wall. No redness seen. He clearly has multiple rotten teeth on the right side. No pus or discharge seen. Utilize central. Some swelling seen at the fold anterior to the tonsils. Objective Data Vital Signs Vital Signs: Vital Signs - 24 hr 09/06/24 16:00 09/06/24 16:00 09/06/24 16:00 Temperature 36.6 C Pulse Rate 92 93 Respiratory Rate 17 Blood Pressure 154/89 H Pulse Oximetry 99 Oxygen Delivery Room Air 09/06/24 18:00 09/06/24 18:00 09/06/24 20:00 Temperature Pulse Rate 95 97 Respiratory Rate 16 Blood Pressure 141/84 H Pulse Oximetry 99 Oxygen Delivery Room Air 09/06/24 20:00 09/06/24 20:00 09/06/24 22:00 Temperature 36.6 C Pulse Rate 99 99 95 Respiratory Rate 16 12 Blood Pressure 163/87 H 171/94 H Pulse Oximetry 100 98 Oxygen Delivery 09/06/24 23:58 09/07/24 00:00 09/07/24 00:00 Temperature Pulse Rate 97 95 Respiratory Rate 16 Blood Pressure 163/89 H Pulse Oximetry 98 Oxygen Delivery Room Air 09/07/24 02:00 12/06/24 04:00 09/07/24 04:00 Temperature 36.8 C Pulse Rate 97 94 Respiratory Rate 17 17 Blood Pressure 169/94 H 150/86 H Pulse Oximetry 98 95 Oxygen Delivery Room Air 09/07/24 04:00 09/07/24 06:00 09/07/24 08:00 Temperature 37.1 C Pulse Rate 96 95 96 Respiratory Rate 15 15 Blood Pressure 163/91 H 152/91 H Pulse Oximetry 96 97 Oxygen Delivery Intake/Output Intake/Output: Intake & Output 09/04/24 09/05/24 09/06/24 09/07/24 23:59 23:59 23:59 23:59 Intake Total 1896.2 2394.2 1280 Output Total 1175 1000 Balance 1896.2 1219.2 280 Meds/Results Medications: Active Medications Generic Name Dose Route Start Last Admin Trade Name Freq PRN Reason Stop Dose Admin Acetaminophen 650 mg 09/05/24 19:33 Acetaminophen 325 Mg Tablet PO Q6H PRN Mild Pain (1-3) or Fever Hydrocodone Bitart/Acetaminophen 1 tab 09/05/24 19:33 09/06/24 17:14 Hydrocodone/Acetaminophen (*Crx) 5-325 Mg Tablet PO 1 tab Q6H PRN Administration Pain Rated 4-6 Dextrose 12.5 gm 09/05/24 14:37 Dextrose 50% 25 Gm/50 Ml Syringe IV PUSH PRN PRN Hypoglycemia Protocol Glucagon 1 mg 09/05/24 14:37 Glucagon For Inj 1 Mg Vial IM PRN PRN Hypoglycemia Protocol Glucose 15 gm 09/05/24 14:37 Glucose Oral Gel 15 Gm Of Glucse In 37.5 Gm Tube PO PRN PRN Hypoglycemia Protocol Hydromorphone HCl 0.5 mg 09/07/24 02:48 Hydromorphone Hcl Inj (*Crx) 1 Mg/Ml Syr IV PUSH Q3H PRN Pain Rated 7-10 Dextrose 1,000 mls @ 100 mls/hr 09/05/24 14:37 Dextrose 5% 1,000 Ml IVPB PRN PRN Hypoglycemia Protocol Ampicillin Sodium/Sulbactam Sodium 3 gm in 100 mls @ 200 mls/hr 09/07/24 04:00 09/07/24 12:19 Unasyn 3 Gm/Ns 100 Ml IVPB Infused Q6HR JOHANNE Infusion Insulin Aspart 4 units 09/06/24 12:00 09/07/24 11:48 Insulin Aspart (*Bkc) 100 Units/Ml 0.067 units/kg (4 units) 4 units SUB-Q Administration TIDWM [facility] Insulin Aspart 3 - 6 units 09/06/24 12:00 09/07/24 11:49 Insulin Aspart (*Bkc) 100 Units/Ml SUB-Q 6 units TIDWM [facility] Administration Protocol Insulin Aspart 1 - 3 units 09/06/24 21:00 09/06/24 21:01 Insulin Aspart (*Bkc) 100 Units/Ml SUB-Q 1 units HS [facility] Administration Protocol Insulin Glargine 15 units 09/06/24 08:25 09/07/24 08:16 Insulin Glargine (*Bkc) 100 Units/Ml SUB-Q 15 units QAM JOHANNE Administration Methylprednisolone Sodium Succinate 80 mg 09/07/24 06:00 09/07/24 03:54 Methylprednisolone Sod Succ 125 Mg Vial IV PUSH 80 mg Q8HR JOHANNE Administration Pantoprazole Sodium 40 mg 09/06/24 09:00 09/07/24 08:18 Pantoprazole 40 Mg Tablet PO 40 mg QAM [facility] Administration Radiology Results: ITS Impressions Face CT 09/05/24 15:30 IMPRESSION: 1. Extensive dental disease. 2. Right lower face soft tissue swelling. 3. 3 mm subcutaneous radiopaque foreign body in right lower face. Soft Tissue Neck CT 09/07/24 05:58 Impression: Mild probable reactive/inflammatory lymphadenopathy in the right neck, as above. Labs Labs: Laboratory Results - last 24 hr 09/06/24 09/06/24 09/07/24 16:38 20:55 08:15 POC Capillary Glucose 201 H 247 H 373 H 09/07/24 11:29 POC Capillary Glucose 408 H Quality VTE Prophylaxis VTE prophylaxis: mechanical ordered
[2024-09-07 14:44] LABS: Glucose Point of Care 328 mg/dl (65-105)
--- NOTE | 2024-09-07 15:11 | PM.IMPN ---
Progress Note: A&P Assessment and Plan (1) Dental infection: Code(s): K04.7 - Periapical abscess without sinus Status: Acute Assessment and Plan: Patient presents with dizziness, dental abscess and hyperglycemia. He had a CT facial bones with contrast showing extensive dental disease, right lower face soft tissue swelling and a 3mm subcutaneous radiopaque foreign body in right lower face. Patient was given clindamycin once in the ED and Solu-Medrol 125mg IV once after admission. Clindamycin IV was continued. Patient has CT soft tissue of the neck with contrast showing mild enlarged LN at the right neck and in submental region/submandibular region probably reactive/inflammatory lymphadenopathy. Parapharyngeal spaces appear normal bilaterally. No abscess evident. The parotid and submandibular glands appear normal. The pharyngeal mucosal spaces appear normal. No soft tissue masses are seen in the neck. BCx NGTD. Overnight, patient was switched to IV Unasyn and started on Solu-Medrol He is able to speak and eat without any difficulty. No respiratory distress or stridor. Continue Unasyn. Solu-Medrol stopped as it is making his hyperglycemia uncontrolled and is not indicated Add Peridex (2) DKA (diabetic ketoacidosis): Qualifiers: Diabetes mellitus type: type 1 Diabetes mellitus complication detail: without coma Qualified Code(s): E10.10 - Type 1 diabetes mellitus with ketoacidosis without coma Code(s): E11.10 - Type 2 diabetes mellitus with ketoacidosis without coma Status: Acute Assessment and Plan: Patient presents with hyperglycemia. He has been out of his insulin for about 1 month. Glucose was 694 with serum bicarb 20 and AG 17. UA showing 3+ ketones. Na 126. Cr 1.8. Pt was given IVF and insulin infusion and admitted to the ICU. Anion gap closed. Patient now is asymptomatic and eating diabetic diet. He was transitioned to subcutaneous insulin Dietitian and tonal regulator consulted (3) Diabetes type 1: Qualifiers: Diabetes mellitus complication status: with ketoacidosis Diabetes mellitus complication detail: without coma Qualified Code(s): E10.10 - Type 1 diabetes mellitus with ketoacidosis without coma Code(s): E10.9 - Type 1 diabetes mellitus without complications Status: Acute Assessment and Plan: A1c 13.4. Patient presumably has Type I DM but was on metformin at original diagnosis and was able to be off insulin for 1 month (unless he is using other people's insulin) so may have Type 1.5. Currently on Lantus with meal time insulin and sliding scale His sugars are now elevated secondary to steroids but steroids stopped Monitor glucose closely. Check autoAb Plan DVT prophylaxis -patient ambulating Code Status - Full Code Subjective Date/time seen: 09/07/24 15:11 Interval history: 39yo male with DM (presumably Type I) here for dizziness, dental abscess and hyperglycemia. Assuming care. Chart reviewed. Patient eating okay. No throat tightness. Feels swelling and tenderness to the anterior right submadibular area. Normally takes mealtime humalog and counts carbs but not on long-acting insulin agents. He was put on Lantus and taken off of Humalog in the past but never on both mealtime insulin and long-acting insulin. He has lila out of insulin for about 1 month. has not been able to get to see dentist. 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 No vision changes. Exam Narrative: AF 98.1 156/88 94 18 100% ra Gen - NARD HEENT - right pupil round and reactive. Left eye deviates out and sclera injected. facial edema noted along the right lower cheek. Pain and firmness right submandibular area. MMM. no oropharngeal edema. no swelling under the tongue. Chest - CTA bilaterally, nml RR CV - RRR S1/S2 Abd - Soft, NT/ND, Positive BS Ext - No pedal edema Psych - Nml mood and affect Skin - Warm and dry Objective Data Vital Signs Vital Signs: Vital Signs - 24 hr 09/06/24 16:00 09/06/24 16:00 09/06/24 16:00 Temperature 98 F Pulse Rate 92 93 Respiratory Rate 17 Blood Pressure 154/89 H Pulse Oximetry 99 Oxygen Delivery Room Air 09/06/24 18:00 09/06/24 18:00 09/06/24 20:00 Temperature Pulse Rate 95 97 Respiratory Rate 16 Blood Pressure 141/84 H Pulse Oximetry 99 Oxygen Delivery Room Air 09/06/24 20:00 09/06/24 20:00 09/06/24 22:00 Temperature 98 F Pulse Rate 99 99 95 Respiratory Rate 16 12 Blood Pressure 163/87 H 171/94 H Pulse Oximetry 100 98 Oxygen Delivery 09/06/24 23:58 09/07/24 00:00 09/07/24 00:00 Temperature Pulse Rate 97 95 Respiratory Rate 16 Blood Pressure 163/89 H Pulse Oximetry 98 Oxygen Delivery Room Air 09/07/24 02:00 09/07/24 04:00 09/07/24 04:00 Temperature 98.3 F Pulse Rate 97 94 Respiratory Rate 17 17 Blood Pressure 169/94 H 150/86 H Pulse Oximetry 98 95 Oxygen Delivery Room Air 09/07/24 04:00 09/07/24 06:00 09/07/24 08:00 Temperature 98.7 F Pulse Rate 96 95 96 Respiratory Rate 15 15 Blood Pressure 163/91 H 152/91 H Pulse Oximetry 96 97 Oxygen Delivery 09/07/24 14:50 Temperature 98.1 F Pulse Rate 94 Respiratory Rate 18 Blood Pressure 156/88 H Pulse Oximetry 100 Oxygen Delivery Intake/Output Intake/Output: Intake & Output 09/04/24 09/05/24 09/06/24 09/07/24 23:59 23:59 23:59 23:59 Intake Total 1896.2 2394.2 1280 Output Total 1175 1000 Balance 1896.2 1219.2 280 Meds/Results Medications: Active Medications Generic Name Dose Route Start Last Admin Trade Name Freq PRN Reason Stop Dose Admin Acetaminophen 650 mg 09/05/24 19:33 Acetaminophen 325 Mg Tablet PO Q6H PRN Mild Pain (1-3) or Fever Hydrocodone Bitart/Acetaminophen 1 tab 09/05/24 19:33 09/06/24 17:14 Hydrocodone/Acetaminophen (*Crx) 5-325 Mg Tablet PO 1 tab Q6H PRN Administration Pain Rated 4-6 Dextrose 12.5 gm 09/05/24 14:37 Dextrose 50% 25 Gm/50 Ml Syringe IV PUSH PRN PRN Hypoglycemia Protocol Glucagon 1 mg 09/05/24 14:37 Glucagon For Inj 1 Mg Vial IM PRN PRN Hypoglycemia Protocol Glucose 15 gm 09/05/24 14:37 Glucose Oral Gel 15 Gm Of Glucse In 37.5 Gm Tube PO PRN PRN Hypoglycemia Protocol Hydromorphone HCl 0.5 mg 09/07/24 02:48 Hydromorphone Hcl Inj (*Crx) 1 Mg/Ml Syr IV PUSH Q3H PRN Pain Rated 7-10 Dextrose 1,000 mls @ 100 mls/hr 09/05/24 14:37 Dextrose 5% 1,000 Ml IVPB PRN PRN Hypoglycemia Protocol Ampicillin Sodium/Sulbactam Sodium 3 gm in 100 mls @ 200 mls/hr 09/07/24 04:00 09/07/24 12:19 Unasyn 3 Gm/Ns 100 Ml IVPB Infused Q6HR JOHANNE Infusion Insulin Aspart 4 units 09/06/24 12:00 09/07/24 11:48 Insulin Aspart (*Bkc) 100 Units/Ml 0.067 units/kg (4 units) 4 units SUB-Q Administration TIDWM JOHANNE Insulin Aspart 4 - 8 units 09/07/24 17:00 Insulin Aspart (*Bkc) 100 Units/Ml SUB-Q TIDWM JOHANNE Protocol Insulin Aspart 2 - 4 units 09/07/24 21:00 Insulin Aspart (*Bkc) 100 Units/Ml SUB-Q HS JOHANNE Protocol Insulin Glargine 15 units 09/06/24 08:25 09/07/24 08:16 Insulin Glargine (*Bkc) 100 Units/Ml SUB-Q 15 units QAM JOHANNE Administration Pantoprazole Sodium 40 mg 09/06/24 09:00 09/07/24 08:18 Pantoprazole 40 Mg Tablet PO 40 mg QAM JOHANNE Administration Radiology Results: ITS Impressions Face CT 09/05/24 15:30 IMPRESSION: 1. Extensive dental disease. 2. Right lower face soft tissue swelling. 3. 3 mm subcutaneous radiopaque foreign body in right lower face. Soft Tissue Neck CT 09/07/24 05:58 Impression: Mild probable reactive/inflammatory lymphadenopathy in the right neck, as above. Labs Labs: Laboratory Results - last 24 hr 09/06/24 09/06/24 09/07/24 16:38 20:55 08:15 POC Capillary Glucose 201 H 247 H 373 H 09/07/24 09/07/24 11:29 14:42 POC Capillary Glucose 408 H 328 H
[2024-09-07 15:21] LABS: Hemoglobin 11.6 g/dL (14.0-18.0); Mean Corpuscular HGB Conc 36.3 g/dl (32-36); Mean Corpuscular Hemoglobin 29.3 pg (26-34); Mean Corpuscular Volume 80.8 fl (80-100); Mean Platelet Volume 9.5 fl (7.4-10.4); Platelet Count Result 216 k/mm3 (150-375); Red Blood Count 3.96 M/mm3 (4.6-6.20); White Blood Count 6.6 K/mm3 (4.5-10.0)
[2024-09-07 16:04] LABS: Glucose Point of Care 311 mg/dl (65-105)
[2024-09-07 16:06] LABS: Alanine Aminotransferase 12 U/L (6-50); Albumin Level 3.5 g/dL (3.5-5.1); Alkaline Phosphatase 109 U/L (38-126); Anion Gap 5 mmol/L (4-12); Aspartate Amino Transferase 22 U/L (17-59); Bilirubin,Total 0.5 mg/dL (0.2-1.3); Blood Urea Nitrogen 29 mg/dL (9-20); Calcium 8.5 mg/dL (8.4-10.2); Carbon Dioxide 28 mmol/L (22-30); Chloride 100 mmol/L (98-107); Estimated CRCL calculation 59 ml/min; Estimated Glomerular Filt Rate 56; Glucose 326 mg/dL (65-110); Magnesium 2.4 mg/dL (1.6-2.3); Potassium 4.6 mmol/L (3.4-5.0); Sodium 133 mmol/L (137-145)
[2024-09-07 17:11] LABS: Glucose Point of Care 245 mg/dl (65-105)
[2024-09-07] MEDS: CHLORHEXIDINE GLUCONATE 0.12% ORAL RINSE 473 ML BTL (*BKC) 15 ML SWISH/SPIT (17:20)
[2024-09-07] MEDS: SODIUM CHLORIDE 0.9% IV 1,000 ML 70 ML IV CONT (18:34)
[2024-09-07 19:47] LABS: Glucose Point of Care 182 mg/dl (65-105)
[2024-09-08] MEDS: AMPICILLIN SULB 3 GM/NS 100 ML 3 GM/100 ML VIAL IVPB ×4 (00:12→17:09)
[2024-09-08] MEDS: HYDROcodone/acetaminophen (*CRX) 5-325 MG TABLET 1 TAB PO ×2 (00:13→07:37)
[2024-09-08 05:55] VITALS: BP 162/77; PULSE 88; RESP 12; TEMP 36.2; O2SAT 98
[2024-09-08 06:12] LABS: Hematocrit 28.5 % (42.0-52.0); Hemoglobin 9.8 g/dL (14.0-18.0); Mean Corpuscular HGB Conc 34.4 g/dl (32-36); Mean Corpuscular Hemoglobin 28.6 pg (26-34); Mean Corpuscular Volume 83.1 fl (80-100); Platelet Count Result 203 k/mm3 (150-375); Red Blood Count 3.43 M/mm3 (4.6-6.20); Red Cell Distribution Width 12.1 % (11.5-14.5); White Blood Count 5.9 K/mm3 (4.5-10.0)
[2024-09-08 06:29] LABS: Alanine Aminotransferase 9 U/L (6-50); Albumin Level 3.1 g/dL (3.5-5.1); Alkaline Phosphatase 97 U/L (38-126); Anion Gap 5 mmol/L (4-12); Aspartate Amino Transferase 14 U/L (17-59); Bilirubin,Total 0.5 mg/dL (0.2-1.3); Blood Urea Nitrogen 31 mg/dL (9-20); Calcium 8.5 mg/dL (8.4-10.2); Carbon Dioxide 26 mmol/L (22-30); Chloride 106 mmol/L (98-107); Estimated CRCL calculation 64 ml/min; Estimated Glomerular Filt Rate > 60; Glucose 253 mg/dL (65-110); Magnesium 2.3 mg/dL (1.6-2.3); Potassium 4.1 mmol/L (3.4-5.0); Sodium 137 mmol/L (137-145)
[2024-09-08] MEDS: CHLORHEXIDINE GLUCONATE 0.12% ORAL RINSE 473 ML BTL (*BKC) 15 ML SWISH/SPIT ×2 (07:37→17:11)
[2024-09-08] MEDS: PANTOPRAZOLE 40 MG TABLET PO (07:38)
[2024-09-08 08:00] VITALS: BP 147/89; PULSE 89; RESP 19; TEMP 36.7; O2SAT 98
[2024-09-08] MEDS: INSULIN ASPART (*BKC) 100 UNITS/ML SUB-Q ×5 (08:58→17:09)
[2024-09-08] MEDS: INSULIN GLARGINE (*BKC) 100 UNITS/ML 15 UNITS SUB-Q (08:59)
[2024-09-08 09:08] LABS: Glucose Point of Care 295 mg/dl (65-105)
[2024-09-08 10:26] LABS: Thyroid Stimulating Hormone Reflex 0.287 uIU/mL (0.465-4.68)
[2024-09-08 11:14] LABS: Free T4 Free Thyroxine Reflex 1.46 ng/dL (0.78-2.19)
[2024-09-08 11:43] LABS: Glucose Point of Care 202 mg/dl (65-105)
[2024-09-08 13:09] LABS: Total Triiodothyronine (T3) 0.82 NG/ML (0.97-1.69)
--- NOTE | 2024-09-08 13:15 | P.PNIM_ITS ---
Progress Note: A&P Assessment and Plan (1) Dental infection: Code(s): K04.7 - Periapical abscess without sinus Status: Acute Assessment and Plan: Patient presents with dizziness, dental abscess and hyperglycemia. He had a CT facial bones with contrast showing extensive dental disease, right lower face soft tissue swelling and a 3mm subcutaneous radiopaque foreign body in right lower face. Patient was given clindamycin once in the ED and Solu-Medrol 125mg IV once after admission. Clindamycin IV was continued. Patient had a CT soft tissue of the neck with contrast showing mild enlarged LN at the right neck and in submental region/submandibular region probably reactive/inflammatory lymphadenopathy. Parapharyngeal spaces appear normal bilaterally. No abscess evident. The parotid and submandibular glands appear normal. The pharyngeal mucosal spaces appear normal. No soft tissue masses are seen in the neck. BCx NGTD. Patient was switched to IV Unasyn and started on Solu-Medrol but steroids quickly stopped due to his DM He is able to speak and eat without any difficulty. No respiratory distress or stridor. Continue Unasyn. Continue Peridex. Change to oral abx tomorrow with planned discharge (2) DKA (diabetic ketoacidosis): Qualifiers: Diabetes mellitus complication detail: without coma Diabetes mellitus type: type 1 Qualified Code(s): E10.10 - Type 1 diabetes mellitus with ketoacidosis without coma Code(s): E11.10 - Type 2 diabetes mellitus with ketoacidosis without coma Status: Acute Assessment and Plan: Patient presents with hyperglycemia. He has been out of his insulin for about 1 month. Glucose was 694 with serum bicarb 20 and AG 17. UA showing 3+ ketones. Na 126. Cr 1.8. Pt was given IVF and insulin infusion and admitted to the ICU. Anion gap closed. Patient now is asymptomatic and eating diabetic diet. He was transitioned to subcutaneous insulin Dietitian and hematology nurse educator consulted (3) Diabetes type 1: Qualifiers: Diabetes mellitus complication detail: without coma Diabetes mellitus complication status: with ketoacidosis Qualified Code(s): E10.10 - Type 1 diabetes mellitus with ketoacidosis without coma Code(s): E10.9 - Type 1 diabetes mellitus without complications Status: Acute Assessment and Plan: A1c 13.4. Patient presumably has Type I DM but was on metformin at original diagnosis and was able to be off insulin for 1 month (unless he is using other people's insulin) so may have Type 1.5. Ab ordered Currently on Lantus with meal time insulin and sliding scale His sugars were elevated secondary to steroids but steroids stopped; glucose better but still elevated. Monitor glucose closely. Advance Lantus. Plan DVT prophylaxis - SCDs Code Status - Full Code Subjective Date/time seen: 09/08/24 13:15 Interval history: 39yo male with DM (presumably Type I) here for dizziness, dental abscess and hyperglycemia. Feels tired today. Increased jaw pain last night but better today. Exam Narrative: AF 98.0 147/89 89 19 98% ra Gen - NARD HEENT - Left eye deviates out and sclera injected. facial edema noted along the right lower cheek that is improved. Chest - CTA bilaterally, nml RR CV - RRR S1/S2 Abd - Soft, NT/ND, Positive BS Ext - No pedal edema Psych - Nml mood and affect Skin - Warm and dry Objective Data Vital Signs Vital Signs: Vital Signs - 24 hr 09/07/24 14:50 09/07/24 21:20 09/07/24 20:00 Temperature 98.1 F 98.1 F Pulse Rate 94 92 Respiratory Rate 18 13 Blood Pressure 156/88 H 162/82 H Pulse Oximetry 100 99 Oxygen Delivery Room Air 09/08/24 05:55 09/08/24 08:00 Temperature 97.1 F L 98.0 F Pulse Rate 88 89 Respiratory Rate 12 19 Blood Pressure 162/77 H 147/89 H Pulse Oximetry 98 98 Oxygen Delivery Intake/Output Intake/Output: Intake & Output 09/05/24 09/06/24 09/07/24 09/08/24 23:59 23:59 23:59 23:59 Intake Total 1896.2 2394.2 1620 2237 Output Total 1175 1000 Balance 1896.2 1219.2 128 2237 Meds/Results Medications: Active Medications Generic Name Dose Route Start Last Admin Trade Name Freq PRN Reason Stop Dose Admin Acetaminophen 650 mg 09/05/24 19:33 Acetaminophen 325 Mg Tablet PO Q6H PRN Mild Pain (1-3) or Fever Hydrocodone Bitart/Acetaminophen 1 tab 09/05/24 19:33 09/08/24 07:37 Hydrocodone/Acetaminophen (*Crx) 5-325 Mg Tablet PO 1 tab Q6H PRN Administration Pain Rated 4-6 Chlorhexidine Gluconate 15 ml 09/07/24 17:00 09/08/24 07:37 Chlorhexidine Gluconate 0.12% Oral Rinse 473 Ml Btl (*Bkc) SWISH/SPIT 15 ml BID JOHANNE Administration Dextrose 12.5 gm 09/05/24 14:37 Dextrose 50% 25 Gm/50 Ml Syringe IV PUSH PRN PRN Hypoglycemia Protocol Glucagon 1 mg 09/05/24 14:37 Glucagon For Inj 1 Mg Vial IM PRN PRN Hypoglycemia Protocol Glucose 15 gm 09/05/24 14:37 Glucose Oral Gel 15 Gm Of Glucse In 37.5 Gm Tube PO PRN PRN Hypoglycemia Protocol Hydromorphone HCl 0.5 mg 09/07/24 02:48 Hydromorphone Hcl Inj (*Crx) 1 Mg/Ml Syr IV PUSH Q3H PRN Pain Rated 7-10 Dextrose 1,000 mls @ 100 mls/hr 09/05/24 14:37 Dextrose 5% 1,000 Ml IVPB PRN PRN Hypoglycemia Protocol Ampicillin Sodium/Sulbactam Sodium 3 gm in 100 mls @ 200 mls/hr 09/07/24 04:00 09/08/24 12:29 Unasyn 3 Gm/Ns 100 Ml IVPB Infused Q6HR JOHANNE Infusion Insulin Aspart 4 units 09/06/24 12:00 09/08/24 12:09 Insulin Aspart (*Bkc) 100 Units/Ml 0.067 units/kg (4 units) 4 units SUB-Q Administration TIDWM [facility] Insulin Aspart 4 - 8 units 09/07/24 17:00 09/08/24 12:09 Insulin Aspart (*Bkc) 100 Units/Ml SUB-Q 4 units TIDWM JOHANNE Administration Protocol Insulin Aspart 2 - 4 units 09/07/24 21:00 09/07/24 19:55 Insulin Aspart (*Bkc) 100 Units/Ml SUB-Q Not Given HS [facility] Protocol Insulin Glargine 15 units 09/06/24 08:25 09/08/24 08:59 Insulin Glargine (*Bkc) 100 Units/Ml SUB-Q 15 units QAM JOHANNE Administration Pantoprazole Sodium 40 mg 09/06/24 09:00 09/08/24 07:38 Pantoprazole 40 Mg Tablet PO 40 mg QAM JOHANNE Administration Radiology Results: ITS Impressions Face CT 09/05/24 15:30 IMPRESSION: 1. Extensive dental disease. 2. Right lower face soft tissue swelling. 3. 3 mm subcutaneous radiopaque foreign body in right lower face. Soft Tissue Neck CT 09/07/24 05:58 Impression: Mild probable reactive/inflammatory lymphadenopathy in the right neck, as above. Labs Labs: Laboratory Results - last 24 hr 09/05/24 09/07/24 09/07/24 13:46 14:42 15:16 WBC 6.6 RBC 3.96 L Hgb 11.6 L Hct 32.0 L MCV 80.8 MCH 29.3 MCHC 36.3 H RDW 12.0 Plt Count 216 MPV 9.5 Sodium 133 L Potassium 4.6 Chloride 100 Carbon Dioxide 28 Anion Gap 5 BUN 29 H Creatinine 1.40 H Estim Creat Clear Calc 59 Estimated GFR 56 L Glucose 326 H POC Capillary Glucose 328 H Serum Osmolality 333 H Calcium 8.5 Magnesium 2.4 H Total Bilirubin 0.5 AST 22 ALT 12 Alkaline Phosphatase 109 Total Protein 7.0 Albumin 3.5 TSH (Reflex) Free T4 Total T3 09/07/24 09/07/24 09/07/24 16:02 17:07 19:37 WBC RBC Hgb Hct MCV MCH MCHC RDW Plt Count MPV Sodium Potassium Chloride Carbon Dioxide Anion Gap BUN Creatinine Estim Creat Clear Calc Estimated GFR Glucose POC Capillary Glucose 311 H 245 H 182 H Serum Osmolality Calcium Magnesium Total Bilirubin AST ALT Alkaline Phosphatase Total Protein Albumin TSH (Reflex) Free T4 Total T3 09/08/24 09/08/24 09/08/24 05:38 08:57 11:38 WBC 5.9 RBC 3.43 L Hgb 9.8 L Hct 28.5 L MCV 83.1 MCH 28.6 MCHC 34.4 RDW 12.1 Plt Count 203 MPV 10.0 Sodium 137 Potassium 4.1 Chloride 106 Carbon Dioxide 26 Anion Gap 5 BUN 31 H Creatinine 1.30 Estim Creat Clear Calc 64 Estimated GFR > 60 Glucose 253 H POC Capillary Glucose 295 H 202 H Serum Osmolality Calcium 8.5 Magnesium 2.3 Total Bilirubin 0.5 AST 14 L ALT 9 Alkaline Phosphatase 97 Total Protein 6.0 L Albumin 3.1 L TSH (Reflex) 0.287 L Free T4 1.46 Total T3 0.82 L
[2024-09-08 16:00] VITALS: BP 166/94; PULSE 67; RESP 18; TEMP 36.4; O2SAT 98
[2024-09-08 17:14] LABS: Glucose Point of Care 98 mg/dl (65-105)
[2024-09-08 20:00] VITALS: BP 155/86; PULSE 89; RESP 12; TEMP 36.4; O2SAT 98
[2024-09-08 20:54] LABS: Glucose Point of Care 92 mg/dl (65-105)
[2024-09-08 23:40] VITALS: BP 177/86; PULSE 92; RESP 16; TEMP 36.9; O2SAT 96
[2024-09-09] MEDS: HYDROcodone/acetaminophen (*CRX) 5-325 MG TABLET 1 TAB PO (00:38)
[2024-09-09] MEDS: AMPICILLIN SULB 3 GM/NS 100 ML 3 GM/100 ML VIAL IVPB ×2 (00:38→07:34)
[2024-09-09 05:20] VITALS: BP 173/95; PULSE 93; RESP 12; TEMP 36.1; O2SAT 99
[2024-09-09 06:02] LABS: Hematocrit 31.7 % (42.0-52.0); Hemoglobin 10.9 g/dL (14.0-18.0); Mean Corpuscular HGB Conc 34.4 g/dl (32-36); Mean Corpuscular Hemoglobin 28.5 pg (26-34); Mean Corpuscular Volume 82.8 fl (80-100); Mean Platelet Volume 9.7 fl (7.4-10.4); Platelet Count Result 244 k/mm3 (150-375); Red Blood Count 3.83 M/mm3 (4.6-6.20); Red Cell Distribution Width 12.2 % (11.5-14.5); White Blood Count 5.9 K/mm3 (4.5-10.0)
[2024-09-09 06:15] LABS: Alanine Aminotransferase 11 U/L (6-50); Albumin Level 3.3 g/dL (3.5-5.1); Alkaline Phosphatase 94 U/L (38-126); Anion Gap 5 mmol/L (4-12); Aspartate Amino Transferase 20 U/L (17-59); Bilirubin,Total 0.5 mg/dL (0.2-1.3); Blood Urea Nitrogen 23 mg/dL (9-20); Calcium 8.9 mg/dL (8.4-10.2); Carbon Dioxide 28 mmol/L (22-30); Chloride 104 mmol/L (98-107); Estimated CRCL calculation 71 ml/min; Estimated Glomerular Filt Rate > 60; Glucose 150 mg/dL (65-110); Magnesium 2.2 mg/dL (1.6-2.3); Potassium 4.1 mmol/L (3.4-5.0); Sodium 137 mmol/L (137-145)
[2024-09-09 08:13] LABS: Glucose Point of Care 160 mg/dl (65-105)
[2024-09-09 08:35] VITALS: BP 153/87; PULSE 92; RESP 16; TEMP 36; O2SAT 98
[2024-09-09] MEDS: INSULIN GLARGINE (*BKC) 100 UNITS/ML 15 UNITS SUB-Q (08:35)
[2024-09-09 08:37] VITALS: O2SAT 98
[2024-09-09] MEDS: INSULIN ASPART (*BKC) 100 UNITS/ML SUB-Q (08:37)
[2024-09-09] MEDS: VALSARTAN 20 MG TABLET PO (08:38)
[2024-09-09] MEDS: PANTOPRAZOLE 40 MG TABLET PO (08:38)
[2024-09-09] MEDS: CHLORHEXIDINE GLUCONATE 0.12% ORAL RINSE 473 ML BTL (*BKC) 15 ML SWISH/SPIT (08:38)
--- NOTE | 2024-09-09 10:42 | P.DS_ITS ---
DS: Admitting Diagnosis Discharge Date 09/09/24 Admitting Diagnosis Dizziness DS: Discharge Diagnosis Discharge Diagnosis (1) Dental infection: Code(s): K04.7 - Periapical abscess without sinus Status: Acute (2) DKA (diabetic ketoacidosis): Qualifiers: Diabetes mellitus type: type 1 Diabetes mellitus complication detail: without coma Qualified Code(s): E10.10 - Type 1 diabetes mellitus with keto acidosis without coma Code(s): E11.10 - Type 2 diabetes mellitus with ketoacidosis without coma Status: Acute (3) Diabetes type 1: Qualifiers: Diabetes mellitus complication status: with ketoacidosis Diabetes melli tus complication detail: without coma Qualified Code(s): E10.10 - Type 1 diabetes mellitus with ketoacidosis without coma Code(s): E10.9 - Type 1 diabetes mellitus without complications Status: Acute (4) Elevated blood pressure reading: Code(s): R03.0 - Elevated blood-pressure reading, without diagnosis of hypertension Status: Acute DS: Summary Hospital Course Reason for hospitalization: 39yo male with DM (presumably Type I) here for dizziness, dental abscess and hyperglycemia. Please see H&P for details. Hospital Course: Patient presents with dizziness, dental abscess and hyperglycemia. He had a CT facial bones with contrast showing extensive dental disease, right lower face soft tissue swelling and a 3mm subcutaneous radiopaque foreign body in right lower face. Patient was given clindamycin once in the ED and Solu-Medrol 125mg IV once after admission. Clindamycin IV was continued. Patient had a CT soft tissue of the neck with contrast showing mild enlarged LN at the right neck and in submental region/submandibular region probably reactive/inflammatory lymphadenopathy. Parapharyngeal spaces appear normal bilaterally. No abscess evident. The parotid and submandibular glands appear normal. The pharyngeal mucosal spaces appear normal. No soft tissue masses are seen in the neck. BCx NGTD. Patient was switched to IV Unasyn and started on Solu-Medrol but steroids quickly stopped due to his DM. He was able to speak and eat without any difficulty. No respiratory distress or stridor. Peridex added. Patient presented with hyperglycemia. He has been out of his insulin for about 1 month. Glucose was 694 with serum bicarb 20 and AG 17. UA showing 2+ protein, 3+ ketones. Na 126. Cr 1.8. Pt was given IVF and insulin infusion and admitted to the ICU. Anion gap closed. Patient now is asymptomatic and eating diabetic diet. He was transitioned to subcutaneous insulin. He was seen by Dietitian and extension educator. A1c 13.4. Patient presumably has Type I DM but was on metformin at original diagnosis and was able to be off insulin for 1 month (unless he is using other people's insulin) so may have Type 1.5. Ab ordered. Currently on Lantus with meal time insulin and sliding scale insulin. His blood pressure was elevated initially felt related to pain but now persistently elevated BP despite clinically better. He has proteinuria but could be related to acute illness. ARB started. Patient had clinicall improvement. Facial swelling and pain improved. He overall did well and was able to be discharged home on 09/09/24. He is aware on how to use insulin pens and has meter/test strips/lancets at home. Status at Discharge Cognitive/behavioral status at discharge: stable Time Spent with Patient Time attestation: Total time spent providing and/or coordinating discharge services: 36 minutes Time spent: Greater than 30 minutes Exam Narrative: AF 96.8 153/87 92 16 98% ra Gen - NARD HEENT - Left eye deviates out and sclera injected. facial edema improved. Chest - CTA bilaterally, nml RR CV - RRR S1/S2 Abd - Soft, NT/ND, Positive BS Ext - No pedal edema Psych - Nml mood and affect Skin - Warm and dry DS: Data Data Completed and Pending Labs on day of discharge: Labs from last 24 hours 09/09/24 09/09/24 09/08/24 08:00 05:32 20:48 WBC 5.9 RBC 3.83 L Hgb 10.9 L Hct 31.7 L MCV 82.8 MCH 28.5 MCHC 34.4 RDW 12.2 Plt Count 244 MPV 9.7 Sodium 137 Potassium 4.1 Chloride 104 Carbon Dioxide 28 Anion Gap 5 BUN 23 H Creatinine 1.20 Estim Creat Clear Calc 71 Estimated GFR > 60 Glucose 150 H POC Capillary Glucose 160 H 92 Calcium 8.9 Magnesium 2.2 Total Bilirubin 0.5 AST 20 ALT 11 Alkaline Phosphatase 94 Total Protein 6.0 L Albumin 3.3 L Free T4 Total T3 09/08/24 09/08/24 09/08/24 16:55 11:38 05:38 WBC RBC Hgb Hct MCV MCH MCHC RDW Plt Count MPV Sodium Potassium Chloride Carbon Dioxide Anion Gap BUN Creatinine Estim Creat Clear Calc Estimated GFR Glucose POC Capillary Glucose 98 202 H Calcium Magnesium Total Bilirubin AST ALT Alkaline Phosphatase Total Protein Albumin Free T4 1.46 Total T3 0.82 L Preliminary micro results at discharge 09/05/24 14:15 Blood Culture - Preliminary Blood 09/05/24 13:46 Blood Culture - Preliminary Blood Discharge Plan Discharge Attending physician on discharge: Oleksandr Griffin Consulting providers: Ferny Cisneros Discharging Clinician: Oleksandr Griffin Anticipated Discharge Date/Time: 09/09/24 10:51 Patient Disposition: Home, Self-Care Activity: as tolerated Diet: diabetic Discharge Instructions: Please check glucose before meals and before bed. Record and bring into your doctor for review. Check blood pressure 1 to 2 times a day. Record and bring into your doctor for review. Call your doctor if your blood pressure is greater than 180/110. Please complete your antibiotic course even if you are starting to feel well. Contact your doctor or call 911 and come to the Emergency Room if you have fevers, lightheadedness with standing or other worrisome symptoms. Avoid NSAIDs (ibuprofen, naproxen, Aleve). Tylenol is safe to take. Follow-up with your primary care provider in 1-2 weeks. Please call for appointment. Thank you for using [facility] for your health care needs. Patient Instructions: Antibiotic Form, Basic Carbohydrate Counting (DC) Stand Alone Forms: General Discharge Information Follow-up/Referrals: Alexandr,Dalton PROCESS ENGINEERING INTERN [Primary Care Provider] - Call for Appointment Discharge Medications: New (DME) pen needle, diabetic [BD Ultra-Fine Micro Pen Needle] 32 gauge x 1/4 needle Qty: 1 0RF Rx Instructions: May substitute to meet patient needs. Use As Directed chlorhexidine gluconate 0.12 % Mouthwash 15 ml SWISHSPIT BID Qty: 300 0RF amoxicillin-pot clavulanate 875-125 mg tablet 1 tablet PO Q12H Qty: 15 0RF valsartan 40 mg tablet 20 mg PO DAILY Qty: 30 0RF insulin glargine 100 unit/mL (3 mL) insulin pen 15 unit subcut QAM Qty: 15 0RF Continued pantoprazole 40 mg tablet,delayed release (DR/EC) 40 mg PO QAM Changed insulin lispro [Humalog U-100 Insulin] 100 unit/mL solution 5 unit subcut TIDWM Qty: 1 0RF Other Ambulatory Orders: Diabetes Education Referral (Routine) Timeframe: 1 Day Location: Determined by Patient Ordered By: Oleksandr Griffin Date of admission: 09/05/24 17:08 Primary Care Provider: AlexandrDalton Admitting Provider: Ruperto Mcnair Attending physician on admission: Ruperto Mcnair Condition: Stable Hospitalist MIPS Heart Failure (Exclusion) Patient has history of Heart Transplant or Left Ventricular Assistive Device?: No IF YES, STOP HERE Heart Failure (Qualifier) Patient has current or prior documentation of LVEF less than or equal to 40%, or mod/servere depressed LVSF?: No IF NO, STOP HERE
[2024-09-15 12:53] LABS: Glutamic acid decarboxylase AA <5 IU/mL (<5)
[2024-09-15 17:53] LABS: Islet Cell Antibody Screen NEGATIVE (NEGATIVE)
--- NOTE | 2024-09-17 09:52 | PC.NURSE ---
GAD65 is WNL at <5
--- NOTE | 2024-09-18 11:23 | PC.NURSE ---
Islet cell Ab is negative. Dr. Elias pulido.
== END 2024-09-09 11:18 | disposition home or self-care (01) | DRG 420 ==
LOC: ANHED 13:55 → ANHICU 16:45 → ANH2MED 09-07 13:20 → ANHICU 09-10 12:17
PROVIDERS: Internal Medicine; Student in an Organized Health Care Education/Training Program; Admitting Provider General Practice; Emergency Provider Emergency Medicine; PCP Nurse Practitioner Family; Visit Provider Internal Medicine
DX: E10.10 Type 1 diabetes mellitus with ketoacidosis without coma (principal); K04.7 Periapical abscess without sinus; K21.9 Gastro-esophageal reflux disease without esophagitis; E78.5 Hyperlipidemia, unspecified; F41.9 Anxiety disorder, unspecified; R03.0 Elevated blood-pressure reading, without diagnosis of hypertension; R25.2 Cramp and spasm; R13.10 Dysphagia, unspecified; Z79.4 Long term (current) use of insulin; Z87.891 Personal history of nicotine dependence
CPT/HCPCS: 36415; 70487; 70491; 80048; 80053; 81001; 82948; 83036; 83605; 83735; 83930; 84100; 84439; 84443; 84480; 85025; 85027; 85610; 85730; 86341; 87040; 87641; 93005; 96361; 96365; 96375; 99285; A4248; A9270; G0378; G0379; J0295; J1171; J1815; J2270; J2919; J3480; J7030; J7120; Q9967